=== PATIENT | female | born 1945 | race Caucasian/White ===

== ENCOUNTER 2017-07-15 13:29 | Outpatient (CLI) | payer MEDICARE, OTHER ==
--- NOTE | 2017-07-16 13:34 | Mammography Report ---
DIGITAL SCREENING MAMMOGRAM: 07/15/2017 CLINICAL INDICATION: A 72-year-old, for screening. COMPARISON: 05/2014, 04/2013, 03/2012, 01/2011, 09/2009. TECHNIQUE: Routine CC and MLO projections were obtained of the breasts. FINDINGS: Scattered fibroglandular tissue is present within the breasts. There are no dominant doretha s, suspicious microcalcifications, or secondary signs of malignancy. In comparison to the previous st udies, there are no significant changes. ASSESSMENT: NO MAMMOGRAPHIC EVIDENCE OF MALIGNANCY. NO SIGNIFICANT INTERVAL CHANGES. RECOMMENDATION: Screening mammography is recommended annually. BIRADS category 1 - negative. STANDARD QUALIFYING STATEMENTS 1. This examination was reviewed with the aid of Computed-Aided Detection (CAD). 2. A negative or benign imaging report should not delay biopsy if clinically suspicious findings are present. Consider surgical consultation if warranted. More than 5% of cancers are not identified by i maging. 3. Dense breasts may obscure an underlying neoplasm. JOB #: [id number] EXT JOB #:[id number]
== END 2017-07-15 13:30 | disposition home or self-care (01) ==
LOC: DI 13:29
PROVIDERS: ATTEND Physician Assistant Medical
DX: Z12.31 Encounter for screening mammogram for malignant neoplasm of breast (principal)
CPT/HCPCS: 77067

== ENCOUNTER 2018-07-19 16:39 | Outpatient (CLI) | payer MEDICARE, OTHER ==
[2018-07-19] MEDS ORDERED: GADOBUTROL 7.5 MMOL/7.5 ML VIAL ONE (16:44)
[2018-07-19] MEDS ORDERED: GADOBUTROL 7.5 MMOL/7.5 ML VIAL IVP ONE (17:23)
--- NOTE | 2018-07-20 14:53 | MRI Report ---
Reason: MENINGIOMA Procedure Date: 07/19/2018 Accession Number: [id number] / [id number] Procedure: MRI - Brain W/WO CPT Code: FULL RESULT: EXAM: MRI BRAIN WITHOUT AND WITH CONTRAST EXAM DATE: 07/19/2018 05:40 PM. CLINICAL HISTORY: 73-year-old woman with history of meningioma. COMPARISON: None available. TECHNIQUE: Multiplanar, multisequence T1-weighted and fluid-sensitive MR sequences of the brain were performed. Sequences optimized for routine evaluation. Other: None. IV Contrast: 7.5 cc Gadavist. FINDINGS: Parenchyma: No evidence of acute infarct on diffusion weighted sequence. There is mild FLAIR hyperintensity in the right frontal lobe overlying the extra-axial parafalcine mass described below. Otherwise, the parenchyma demonstrates mild burden of nonspecific FLAIR hyperintensities in the deep cerebral and periventricular white matter, most consistent with sequelae of chronic small vessel ischemic disease in a common finding in this age group. No evidence of prior hemorrhage on susceptibility weighted sequence. No abnormal intraparenchymal enhancement. Pituitary: Unremarkable. Ventricles: Mass-effect narrows the frontal horn of the right lateral ventricle. Ventricles are otherwise normal in size for age. Extra-axial Spaces: Large enhancing mass is present along the anterior falx, primarily centered to the right of midline. This measures approximately 4.2 x 4.2 cm in maximum axial dimensions and 4.7 cm craniocaudal. Prominent vessels are visualized within the mass, suggesting hypervascularity. Orbits: Unremarkable except for bilateral lens replacement surgery. Sinuses: Minimal scattered mucosal thickening is present in the paranasal sinuses. Mastoid air cells are clear. Major Vascular Flow Voids: Intact. Dural Venous Sinuses and Major Central Veins: Patent on post-contrast images. IMPRESSION: 1. Large extra-axial mass along the anterior right falx, most consistent with parafalcine meningioma. Adjacent right frontal lobe is displaced and there is mild signal abnormality in the abutting parenchyma. [facility]
== END 2018-07-19 16:40 | disposition home or self-care (01) ==
LOC: DI 16:39
PROVIDERS: ATTEND Nurse Practitioner Family
DX: D32.9 Benign neoplasm of meninges, unspecified (principal)
CPT/HCPCS: 70553; A9585

== ENCOUNTER 2018-08-15 08:00 | Outpatient (CLI) | payer MEDICARE, OTHER ==
[2018-08-15 19:00] LABS: BILIRUBIN,URINE NEGATIVE (NEGATIVE); GLUCOSE, URINE (UA) NEGATIVE (NEGATIVE); KETONES,URINE (UA) NEGATIVE (NEGATIVE); LEUKOCYTE ESTERASE, URINE NEGATIVE (NEGATIVE); NITRITE,URINE NEGATIVE (NEGATIVE); OCCULT BLOOD,URINE NEGATIVE (NEGATIVE); PH,URINE 6.5 PH (5.0-7.5); PROTEIN,URINE NEGATIVE (NEGATIVE); UROBILINOGEN,URINE 0.2 (NORMAL) E.U./dL (NORMAL)
[2018-08-15 19:01] LABS: CLARITY,URINE CLEAR (CLEAR)
== END 2018-08-15 08:01 | disposition home or self-care (01) ==
LOC: LAB.R 08:00
PROVIDERS: ATTEND Nurse Practitioner Primary Care
DX: R39.15 Urgency of urination (principal)
CPT/HCPCS: 81001; 81003; 87086